=== PATIENT | male | born 1960 | race Two or more races ===

== ENCOUNTER 2020-06-27 15:52 | Inpatient (IN) | payer MEDICAID, OTHER ==
[~2020-06-27] VITALS: Ht 172.7 cm; Wt 131.8 kg
[2020-06-27] MEDS ORDERED: ZINC SULFATE 220mg CAP or TAB PO ONE (16:30)
[2020-06-27] MEDS ORDERED: AZITHROMYCIN 500MG/ 250ML 250 ML IV ONE (16:30)
[2020-06-27] MEDS ORDERED: ENOXAPARIN SOD 100 MG/1 ML SYRINGE SC ONE (16:30)
[2020-06-27] MEDS ORDERED: ASCORBIC ACID 500 MG TAB PO ONE (16:30)
[2020-06-27] MEDS ORDERED: methylPREDNISolone SOD SUCC 125 MG/2 ML VL IV ONE (16:30)
[2020-06-27] MEDS ORDERED: ACETAMINOPHEN 325 MG TAB PO ONE ×2 (16:51→17:00)
[2020-06-27 17:32] LABS: Basophils # (auto) 0 10 ^3/uL (0-0.2); Basophils % (auto) 0.4 % (0.0-2.0); Eosinophils # (auto) 0 10 ^3/uL (0-0.8); Eosinophils % (auto) 0.4 % (0.0-7.0); Hemoglobin 14.5 g/dL (13.5-17.5); Lymphocytes # (auto) 0.3 10 ^3/uL (0.4-5.4); Lymphocytes % (auto) 2.1 % (10.0-50.0); Mean Corpuscular Hgb Conc. 33.6 g/dL (32.0-36.0); Mean Corpuscular Volume 98.2 fL (80.0-100.0); Monocytes # (auto) 0.8 10 ^3/uL (0-1.3); Monocytes % (auto) 6.8 % (0.0-12.0); Neutrophils # (auto) 11.3 10 ^3/uL (1.6-8.6); Neutrophils % (auto) 90.3 % (37.0-80.0); Nucleated Red Blood Cells % 0.1 %; Platelet Count (auto) 73 10^3/uL (140-450); Red Blood Cells 4.38 10^6/uL (4.5-5.90); Red Cell Distribution Width 14.7 % (11.8-14.3); White Blood Cell 12.5 10^3/uL (4.4-10.8)
[2020-06-27 17:43] LABS: Albumin 3.1 g/dL (3.4-5.0); Anion Gap 8 (5-15); Blood Urea Nitrogen 8 mg/dL (7-18); Calcium 8.2 mg/dL (8.5-10.1); Carbon Dioxide 20 mmol/L (21-32); Chloride 106 mmol/L (98-107); Glucose 122 mg/dL (74-106); Potassium 3.4 mmol/L (3.5-5.1); Sodium 134 mmol/L (136-145)
[2020-06-27 17:57] LABS: Alanine Aminotransferase 49 U/L (16-61); Alkaline Phosphatase 149 U/L (45-117); Aspartate Aminotransferase 62 U/L (15-37); BUN/Creatinine Ratio 11.3; Bilirubin, Total 2.9 mg/dL (0.2-1.0); CRP High Sensitivity 0.68 mg/dL (< 0.3); GFR African American 147 mL/min; GFR Non-African American 121 mL/min; Lactate Dehydrogenase 287 U/L (87-241); Total Protein 7.3 g/dL (6.4-8.2)
[2020-06-27] MEDS ORDERED: ONDANSETRON HCL 4 MG/2 ML VIAL IV ONE (18:30)
[2020-06-27] MEDS ORDERED: MORPHINE SULFATE 4 MG/ML SYR/VIAL IV ONE (18:30)
[2020-06-27] MEDS ORDERED: SODIUM CHLORIDE 0.9% 1,000 ML IV SCH (18:42)
[2020-06-27] MEDS ORDERED: NITROGLYCERIN 0.4 MG SL TAB SL PRN (18:45)
[2020-06-27] MEDS ORDERED: ACETAMINOPHEN 500 MG TAB PO PRN ×2 (18:45→19:15)
[2020-06-27] MEDS ORDERED: MORPHINE SULF INJ 2 MG/ML SYRINGE 1ML IV PRN (18:45)
[2020-06-27] MEDS ORDERED: ALBUTEROL SULF 2.5 MG/0.5ML(0.5%) NEB SOLN NEB PRN (19:15)
[2020-06-27] MEDS ORDERED: traMADol HCL 50 MG TAB PO PRN (19:15)
[2020-06-27] MEDS ORDERED: LACTULOSE 20Gm/30ML SOLN PO PRN (19:15)
[2020-06-27] MEDS ORDERED: TEMAZEPAM 15 MG CAP PO PRN (19:15)
[2020-06-27] MEDS ORDERED: DEXTROSE (50%) 50ML SYRG IV PRN (19:15)
[2020-06-27] MEDS ORDERED: VANCOMYCIN PER PHARMACY 0 MG IV SCH (19:15)
[2020-06-27] MEDS ORDERED: PROMETHAZINE HCL 25 MG/ML 1ML IV PRN (19:15)
[2020-06-27] MEDS ORDERED: levoFLOXacin 500MG 100 ML IV ONE (19:15)
[2020-06-27 19:17] VITALS: BP 124/91
[2020-06-27] MEDS ORDERED: POTASSIUM EFFERVESENT TAB 25 MEQ PO ONE (19:30)
[2020-06-27] MEDS ORDERED: ENOXAPARIN SOD 40 MG/0.4 ML SYRINGE SC ONE (20:00)
[2020-06-27 20:23] LABS: Urine Bacteria NONE SEEN /hpf (None Seen); Urine Blood Negative /uL (Negative); Urine Specific Gravity 1.015 (1.001-1.035); Urine WBC 6 /hpf (0 - 3)
[2020-06-27 20:31] LABS: Alcohol, Urine < 3.0 mg/dL (0-10); Amphetamine Screen, Urine NEGATIVE (NEGATIVE); Barbiturate Scree,Urine NEGATIVE (NEGATIVE); Benzodiazephine Screen, Urine NEGATIVE (NEGATIVE); Cannabinoid Screen, Urine POSITIVE (NEGATIVE); Cocaine Screen, Urine NEGATIVE (NEGATIVE); Opiate Scree,Urine NEGATIVE (NEGATIVE); Phencyclidine Screen, Urine NEGATIVE (NEGATIVE)
[2020-06-27] MEDS: SODIUM CHLORIDE 0.9% 1,000 ML IV SCH (20:38)
[2020-06-27] MEDS ORDERED: VANCOMYCIN 1GM/250ML 250 ML IV ONE (21:00)
[2020-06-27] MEDS: FAMOTIDINE 20 MG TAB PO SCH (21:59)
[2020-06-27] MEDS: ACCU-CHEK COMFORT CURVE STRIP VI SCH (21:59)
[2020-06-27] MEDS ORDERED: ALBUTEROL SULF HFA 90MCG INH 200DOSE IN SCH (22:00)
[2020-06-27] MEDS ORDERED: BUDESONIDE (INHALATION) 180 MCG IH IN SCH (22:00)
--- NOTE | 2020-06-27 22:28 | NUR ---
MEDICATION HELD AT THIS TIME PENDING COVID 19 RESULTS. SPO2 94% ON 4L NC, HR 82, RR 19. PT IS RESTING COMFORTABLY. NO DISTRESS NOTED.
[2020-06-27] MEDS: MORPHINE SULF INJ 2 MG/ML SYRINGE 1ML IV PRN (22:32)
[2020-06-28 00:10] VITALS: BP 119/72
--- NOTE | 2020-06-28 00:30 | NUR ---
tele admit from ED pt arrived via wheelchair, awake alert and oriented x4. pt on room air no s/s distress noted or expressed. pt denies any pain. pt able to ambulate from wheelchair to restroom and to bed unassisted and without incident. pt oriented to this nurse, bed controls, use of call light. pt updated on plan of care. pt reports pain in right leg worsened over the course of one day and the pain, "made it so it was hard for me to breathe", pt denies any sob at the moment. pt right lower extremity skin is tight, warm and dark in appearance. pt has no open wounds. pt is tele 12 showing sinus rhythm in the 70's. call light in reach, pt encouraged to call as needed. this nurse to round q1hr and prn.
[2020-06-28 05:00] VITALS: BP 109/71
[2020-06-28] MEDS: VANCOMYCIN 1GM/250ML 250 ML IV SCH ×3 (05:07→21:25)
[2020-06-28] MEDS: SODIUM CHLORIDE 0.9% 1,000 ML IV SCH (05:07)
[2020-06-28 05:54] LABS: Basophils # (auto) 0 10 ^3/uL (0-0.2); Eosinophils # (auto) 0 10 ^3/uL (0-0.8); Monocytes # (auto) 0.5 10 ^3/uL (0-1.3); Red Blood Cells 4.26 10^6/uL (4.5-5.90)
[2020-06-28 05:57] LABS: Basophils % (auto) 0.1 % (0.0-2.0); Hematocrit 41.7 % (41.0-53.0); Hemoglobin 14.2 g/dL (13.5-17.5); Lymphocytes # (auto) 0.3 10 ^3/uL (0.4-5.4); Lymphocytes % (auto) 2.2 % (10.0-50.0); Mean Corpuscular Hemoglobin 33.4 pg (28.0-32.0); Mean Corpuscular Hgb Conc. 34.1 g/dL (32.0-36.0); Mean Corpuscular Volume 97.9 fL (80.0-100.0); Monocytes % (auto) 4.4 % (0.0-12.0); Neutrophils # (auto) 10.7 10 ^3/uL (1.6-8.6); Neutrophils % (auto) 93.3 % (37.0-80.0); Platelet Count (auto) 55 10^3/uL (140-450); Red Cell Distribution Width 14.3 % (11.8-14.3); White Blood Cell 11.5 10^3/uL (4.4-10.8)
[2020-06-28 06:14] LABS: Albumin 2.8 g/dL (3.4-5.0); Anion Gap 6 (5-15); Blood Urea Nitrogen 9 mg/dL (7-18); Calcium 7.9 mg/dL (8.5-10.1); Carbon Dioxide 23 mmol/L (21-32); Chloride 107 mmol/L (98-107); Glucose 161 mg/dL (74-106); Potassium 3.8 mmol/L (3.5-5.1); Sodium 136 mmol/L (136-145)
[2020-06-28 06:29] LABS: Alanine Aminotransferase 49 U/L (16-61); Alkaline Phosphatase 105 U/L (45-117); Aspartate Aminotransferase 49 U/L (15-37); BUN/Creatinine Ratio 11.4; Bilirubin, Total 2.6 mg/dL (0.2-1.0); GFR African American 130 mL/min; GFR Non-African American 107 mL/min
[2020-06-28] MEDS: ACCU-CHEK COMFORT CURVE STRIP VI SCH ×4 (07:04→21:34)
[2020-06-28] MEDS ORDERED: IOHEXOL 350 MG/ML 100ML IJ ONE ×2 (07:30→08:27)
[2020-06-28 08:35] VITALS: BP 113/74
[2020-06-28] MEDS: MORPHINE SULF INJ 2 MG/ML SYRINGE 1ML IV PRN ×3 (09:07→20:23)
[2020-06-28] MEDS: FAMOTIDINE 20 MG TAB PO SCH ×2 (09:33→21:25)
[2020-06-28] MEDS ORDERED: ENOXAPARIN SOD 40 MG/0.4 ML SYRINGE SC SCH (10:00)
[2020-06-28] MEDS ORDERED: ASCORBIC ACID 1,000 MG TAB PO SCH (10:00)
[2020-06-28] MEDS ORDERED: DexAMETHasone SOD PHOS 10MG/1ML VIAL INJ IV SCH (10:00)
[2020-06-28] MEDS ORDERED: ZINC SULFATE 220mg CAP or TAB PO SCH (10:00)
[2020-06-28] MEDS ORDERED: CHOLECALCIFEROL (VITD3) 2,000 UNIT CAP PO SCH (10:00)
[2020-06-28 12:38] VITALS: BP 104/64
--- NOTE | 2020-06-28 14:10 | NUR ---
Received pt from room 250, pt sitting on side of the bed on the phone, no pain or any other distress noted at this time, call light within reach, will continue to monitor pt.
[2020-06-28] MEDS ORDERED: CEFEPIME 1 GM in SODIUM CHL 0.9% 50 ML IV ONE (17:00)
--- NOTE | 2020-06-28 20:07 | NUR ---
Opening Shift Note Assumed care of patient, awake and alert. No S/S of distress/SOB or pain. Instructed on POC and to call for assist PRN, will continue to monitor for changes Q1hr and PRN. Bed locked in lowest position, HOB elevated at least 30 degrees, call light is within reach and side rails up x 2.
[2020-06-28 20:08] LABS: INR 1.1 (0.9-1.15)
--- NOTE | 2020-06-28 20:08 | NUR ---
PATIENT TAKEN DOWN FOR CT
--- NOTE | 2020-06-28 20:28 | NUR ---
PATIENT RETURNED FROM CT. NO SIGNS OF DISTRESS AT THIS TIME. RESPIRATIONS EVEN AND UNLABORED.
[2020-06-28] MEDS ORDERED: levoFLOXacin 500MG 100 ML IV SCH (21:00)
[2020-06-28 23:17] VITALS: BP 133/78
[2020-06-29] MEDS: MORPHINE SULF INJ 2 MG/ML SYRINGE 1ML IV PRN ×3 (01:14→23:59)
[2020-06-29] MEDS: VANCOMYCIN 1GM/250ML 250 ML IV SCH ×4 (02:11→21:38)
[2020-06-29 05:09] VITALS: BP 126/86
[2020-06-29] MEDS: CEFEPIME 1 GM in SODIUM CHL 0.9% 50 ML IV SCH ×3 (05:40→22:56)
[2020-06-29] MEDS: ACCU-CHEK COMFORT CURVE STRIP VI SCH ×4 (06:02→22:40)
--- NOTE | 2020-06-29 07:30 | NUR ---
RECEIVED REPORT FROM NIGHT NURSE. PATIENT RESTING IN BED, NO DISTRESS NOTED. WILL CONTINUE TO MONITOR.
--- NOTE | 2020-06-29 07:41 | NUR ---
CLOSING NOTE CARE ENDORSED TO DAY SHIFT RN
[2020-06-29 09:00] VITALS: BP 112/73
[2020-06-29] MEDS: FAMOTIDINE 20 MG TAB PO SCH ×2 (09:55→22:32)
--- NOTE | 2020-06-29 10:03 | NUR ---
DOCTOR VELASQUEZ AT BEDSIDE. ORDERS RECEIVED, WILL PLACE AND CARRY OUT.
[2020-06-29 10:06] LABS: Potassium 3.3 mmol/L (3.5-5.1)
[2020-06-29 10:08] LABS: BUN/Creatinine Ratio 16.7
[2020-06-29] MEDS ORDERED: POTASSIUM EFFERVESENT TAB 25 MEQ PO ONE (12:15)
[2020-06-29 13:00] VITALS: BP 133/91
[2020-06-29] MEDS ORDERED: POTASSIUM CHL 20 Meq TABLET PO ONE (14:00)
[2020-06-29 14:13] LABS: Neutrophils % (auto) 75.8 % (37.0-80.0); White Blood Cell 6.2 10^3/uL (4.4-10.8)
[2020-06-29 14:15] LABS: Basophils % (auto) 0.6 % (0.0-2.0); Eosinophils # (auto) 0.1 10 ^3/uL (0-0.8); Eosinophils % (auto) 1.9 % (0.0-7.0); Lymphocytes # (auto) 0.54 10 ^3/uL (0.4-5.4); Lymphocytes % (auto) 8.7 % (10.0-50.0); Monocytes # (auto) 0.79 10 ^3/uL (0-1.3); Monocytes % (auto) 12.7 % (0.0-12.0); Neutrophils # (auto) 4.71 10 ^3/uL (1.6-8.6)
[2020-06-29 14:16] LABS: Basophils # (auto) 0.04 10 ^3/uL (0-0.2); Hematocrit 41.2 % (41.0-53.0); Mean Corpuscular Hemoglobin 33.3 pg (28.0-32.0); Mean Corpuscular Volume 97.9 fL (80.0-100.0); Red Blood Cells 4.21 10^6/uL (4.5-5.90); Red Cell Distribution Width 14.2 % (11.8-14.3)
[2020-06-29 14:17] LABS: Platelet Count (auto) 60 10^3/uL (140-450)
[2020-06-29 17:00] VITALS: BP 111/64
[2020-06-29 22:19] VITALS: BP 107/64
[2020-06-29] MEDS: APIXABAN 5 MG TAB PO SCH (22:32)
[2020-06-30] MEDS: VANCOMYCIN 1GM/250ML 250 ML IV SCH ×3 (02:11→17:27)
[2020-06-30 04:54] VITALS: BP 134/90
[2020-06-30] MEDS: CEFEPIME 1 GM in SODIUM CHL 0.9% 50 ML IV SCH ×2 (05:42→15:20)
[2020-06-30 05:55] LABS: Basophils # (auto) 0.1 10 ^3/uL (0-0.2); Basophils % (auto) 1.4 % (0.0-2.0); Eosinophils # (auto) 0.2 10 ^3/uL (0-0.8); Eosinophils % (auto) 5.3 % (0.0-7.0); Lymphocytes # (auto) 0.6 10 ^3/uL (0.4-5.4); Lymphocytes % (auto) 15.6 % (10.0-50.0); Mean Corpuscular Hemoglobin 33.6 pg (28.0-32.0); Mean Corpuscular Hgb Conc. 34.1 g/dL (32.0-36.0); Mean Corpuscular Volume 98.7 fL (80.0-100.0); Monocytes # (auto) 0.6 10 ^3/uL (0-1.3); Monocytes % (auto) 16.6 % (0.0-12.0); Neutrophils # (auto) 2.3 10 ^3/uL (1.6-8.6); Neutrophils % (auto) 61.1 % (37.0-80.0); Nucleated Red Blood Cells % 0.1 %; Platelet Count (auto) 65 10^3/uL (140-450); Red Blood Cells 4.16 10^6/uL (4.5-5.90); Red Cell Distribution Width 14.8 % (11.8-14.3); White Blood Cell 3.8 10^3/uL (4.4-10.8)
[2020-06-30] MEDS: ACCU-CHEK COMFORT CURVE STRIP VI SCH (06:22)
--- NOTE | 2020-06-30 07:08 | NUR ---
Closing Note Endorsed care to day shift RN
--- NOTE | 2020-06-30 07:30 | NUR ---
RECEIVED REPORT FROM NIGHT NURSE. PATIENT RESTING IN BED, NO DISTRESS NOTED. WILL CONTINUE TO MONITOR.
[2020-06-30 09:00] VITALS: BP 107/65
[2020-06-30] MEDS: FAMOTIDINE 20 MG TAB PO SCH ×2 (09:31→21:57)
[2020-06-30] MEDS: APIXABAN 5 MG TAB PO SCH ×2 (09:31→21:57)
[2020-06-30] MEDS: MORPHINE SULF INJ 2 MG/ML SYRINGE 1ML IV PRN ×3 (09:31→21:57)
[2020-06-30 13:00] VITALS: BP 123/72
[2020-06-30 16:58] VITALS: BP 140/83
[2020-06-30] MEDS: cefTRIAXone 1GM/50ML D5W 50 ML IV SCH (17:39)
--- NOTE | 2020-06-30 19:20 | NUR ---
Opening Shift Note Assumed care of patient after receiving report. Patient is awake and alert with no S/S of distress/SOB or pain. Call light within reach, bed in lowest locked position x2 side rails, HOB semi fowlers. Instructed on POC and to call for assist PRN, will continue to monitor for changes Q1hr and PRN.
[2020-06-30 21:00] VITALS: BP 114/75
[2020-06-30] MEDS: DOXYCYCLINE 100 MG TAB/CAP PO SCH (21:57)
--- NOTE | 2020-06-30 21:57 | NUR ---
Pain Patient complains of pain located in lower extremities, 9/10. Patient requesting pain medication at this time. PRN Morphine given for severe pain 7-10 at this time. Will continue to monitor and reassess.
[2020-07-01 05:00] VITALS: BP 142/78
[2020-07-01] MEDS: MORPHINE SULF INJ 2 MG/ML SYRINGE 1ML IV PRN ×3 (05:09→20:47)
--- NOTE | 2020-07-01 07:10 | NUR ---
Opening Shift Note Assumed care of patient resting with eyes closed. Respirations even and unlabored. No S/S of distress/SOB or pain. Will continue to monitor for changes. Bed locked in lowest position, HOB elevated at least 30 degrees, side rails up x 2 and call light is within reach.
[2020-07-01 08:57] VITALS: BP 129/79
[2020-07-01] MEDS: cefTRIAXone 1GM/50ML D5W 50 ML IV SCH (09:40)
[2020-07-01] MEDS: FAMOTIDINE 20 MG TAB PO SCH ×2 (09:41→22:05)
[2020-07-01] MEDS: DOXYCYCLINE 100 MG TAB/CAP PO SCH ×2 (09:41→22:06)
[2020-07-01] MEDS: APIXABAN 5 MG TAB PO SCH ×2 (09:41→22:05)
--- NOTE | 2020-07-01 11:54 | NUR ---
Nutrition Assessment Note please see attached link for complete assessment Est Energy needs ABW 103 [id number] kcals (17-20 kcal/kgABW), Est Protein needs: 103-113 gms/day (1.0-1.1 gm/kgABW). Will continue to monitor and reassess prn. Addendum: 07/01/20 at [address] Amended: Links added.
[2020-07-01 13:24] VITALS: BP 118/81
[2020-07-01 16:30] VITALS: BP 124/79
--- NOTE | 2020-07-01 19:20 | NUR ---
CLOSING SHIFT NOTE ENDORSED CARE TO NOC SHIFT RN
[2020-07-01 22:00] VITALS: BP 131/84
[2020-07-02] MEDS: MORPHINE SULF INJ 2 MG/ML SYRINGE 1ML IV PRN (04:36)
[2020-07-02 05:00] VITALS: BP 122/69
[2020-07-02 06:30] LABS: Basophils # (auto) 0 10 ^3/uL (0-0.2); Basophils % (auto) 0.9 % (0.0-2.0); Eosinophils # (auto) 0.4 10 ^3/uL (0-0.8); Hematocrit 44.2 % (41.0-53.0); Hemoglobin 14.9 g/dL (13.5-17.5); Lymphocytes # (auto) 0.7 10 ^3/uL (0.4-5.4); Lymphocytes % (auto) 15.7 % (10.0-50.0); Mean Corpuscular Hemoglobin 33.2 pg (28.0-32.0); Mean Corpuscular Hgb Conc. 33.8 g/dL (32.0-36.0); Mean Corpuscular Volume 98.2 fL (80.0-100.0); Monocytes # (auto) 0.6 10 ^3/uL (0-1.3); Monocytes % (auto) 12.2 % (0.0-12.0); Neutrophils % (auto) 63.2 % (37.0-80.0); Nucleated Red Blood Cells % 0.2 %; Platelet Count (auto) 83 10^3/uL (140-450); Red Cell Distribution Width 14.4 % (11.8-14.3); White Blood Cell 4.7 10^3/uL (4.4-10.8)
[2020-07-02 06:37] LABS: Potassium 3.9 mmol/L (3.5-5.1)
[2020-07-02 06:42] LABS: BUN/Creatinine Ratio 15.8; Calcium 8.7 mg/dL (8.5-10.1)
[2020-07-02 09:00] VITALS: BP 122/76
[2020-07-02] MEDS: APIXABAN 5 MG TAB PO SCH (14:29)
[2020-07-02] MEDS: cefTRIAXone 1GM/50ML D5W 50 ML IV SCH (14:29)
[2020-07-02] MEDS: DOXYCYCLINE 100 MG TAB/CAP PO SCH (14:30)
[2020-07-02] MEDS: FAMOTIDINE 20 MG TAB PO SCH (14:30)
[2020-07-06] MEDS ORDERED: APIXABAN 5 MG TAB PO SCH (22:00)
== END 2020-07-02 13:45 | disposition home or self-care (01) | DRG 383 ==
LOC: EDBD 15:52 → ER 15:52 → TELE 15:53 → TELE-EAST 23:33 → TELE-CENTR 06-28 14:24
PROVIDERS: ADMIT Internal Medicine; ATTEND Internal Medicine Nephrology
DX: L03.115 Cellulitis of right lower limb (principal); D69.6 Thrombocytopenia, unspecified; D68.4 Acquired coagulation factor deficiency; E87.1 Hypo-osmolality and hyponatremia; K70.30 Alcoholic cirrhosis of liver without ascites; I10 Essential (primary) hypertension; E87.6 Hypokalemia; K21.9 Gastro-esophageal reflux disease without esophagitis; R59.0 Localized enlarged lymph nodes; E66.01 Morbid (severe) obesity due to excess calories; R59.1 Generalized enlarged lymph nodes; Z20.828 Contact with and (suspected) exposure to other viral communicable diseases; Z80.0 Family history of malignant neoplasm of digestive organs; Z82.49 Family history of ischemic heart disease and other diseases of the circulatory system; Z83.3 Family history of diabetes mellitus; Z79.899 Other long term (current) drug therapy; Z90.49 Acquired absence of other specified parts of digestive tract; I82.511 Chronic embolism and thrombosis of right femoral vein; Z68.42 Body mass index [BMI] 45.0-49.9, adult
CPT/HCPCS: 36415; 71045; 71275; 73700; 80048; 80053; 80202; 80307; 81001; 82550; 82728; 82962; 83036; 83605; 83615; 83880; 84484; 85025; 85379; 85610; 85652; 86141; 87040; 87086; 87426; 93005; 93306; 93971; 96365; 96367; 96372; 96375; 99291; G0378; J0696; J1956; J2405